=== PATIENT | female | born 1965 | race Caucasian/White ===

== ENCOUNTER 2023-07-29 16:56 | Emergency (ER) | payer OTHER ==
[2023-07-29] MEDS ORDERED: traMADol HCl 50 MG TAB ONE (19:02)
== END 2023-07-29 18:57 | disposition home or self-care (01) ==
LOC: CSHERS 16:56
DX: M25.461 Effusion, right knee (principal); I10 Essential (primary) hypertension; E11.40 Type 2 diabetes mellitus with diabetic neuropathy, unspecified